=== PATIENT | female | born 1965 | race Caucasian/White ===

== ENCOUNTER 2016-04-17 13:24 | Emergency (ER) | payer MEDICARE, OTHER ==
[2016-04-17 14:31] LABS: URINE BACTERIA TRACE (NONE SEEN); URINE BILIRUBIN NEGATIVE (NEGATIVE); URINE BLOOD TRACE (NEGATIVE); URINE GLUCOSE (UA) 50 mg/dL (NORMAL); URINE KETONE TRACE (NEGATIVE); URINE LEUKOCYTE ESTERASE TRACE (NEGATIVE); URINE NITRATE NEGATIVE (NEGATIVE); URINE PROTEIN TRACE (NEGATIVE); URINE RBC 0-5 /[HPF] (0-2); URINE SQUAMOUS EPITHELIAL CELL 0-10 /[HPF] (NONE SEEN); URINE WBC 0-5 /[HPF] (0-5); UROBILINOGEN NORMAL mg/dL (<1.0)
== END 2016-04-17 16:52 | disposition home or self-care (01) ==
LOC: ER 13:24
PROVIDERS: General Practice
DX: N23 Unspecified renal colic (principal); K76.0 Fatty (change of) liver, not elsewhere classified; N28.1 Cyst of kidney, acquired; R10.32 Left lower quadrant pain; R31.9 Hematuria, unspecified; R30.0 Dysuria; E66.01 Morbid (severe) obesity due to excess calories; F17.210 Nicotine dependence, cigarettes, uncomplicated; Z79.82 Long term (current) use of aspirin; Z79.899 Other long term (current) drug therapy
CPT/HCPCS: 74150; 81001; 99070; 99284; 99284-25

== ENCOUNTER 2016-07-12 10:03 | Emergency (ER) | payer MEDICARE, OTHER ==
[2016-07-12 10:39] LABS: BASO # 0.1 10_X3_uL (0.0-0.1); BASO % 0.7 % (0.1-1.2); EOS # 0.2 10_X3_uL (0.0-0.4); GRAN # 5.7 10_X3_uL (1.6-6.1); GRAN % 59.2 % (34.0-71.1); HEMATOCRIT 41.7 % (34-45); HEMOGLOBIN 14.4 g/dL (11.2-15.7); LYMPH # 2.5 10_X3_uL (1.2-3.7); LYMPH % 26.3 % (19.3-51.7); MEAN CORPUSCULAR HEMOGLOBIN 31.6 pg (27.0-33.0); MEAN CORPUSCULAR HGB CONC 34.5 g/dL (32.0-36.0); MEAN CORPUSCULAR VOLUME 91.4 fL (79-95); MEAN PLATELET VOLUME 10.3 fl (7.5-11.5); MONO # 1.1 10_X3_uL (0.2-0.9); MONO % 11.8 % (4.7-12.5); PLATELET COUNT 181 x10_3/uL (182-369); RED BLOOD COUNT 4.56 x10_6/uL (3.9-5.2); RED CELL DISTRIBUTION WIDTH 12.6 % (11.7-14.4); WHITE BLOOD COUNT 9.6 x10_3/uL (4.0-10.0)
== END 2016-07-12 11:30 | disposition home or self-care (01) ==
LOC: ER 10:03
PROVIDERS: Family Medicine
DX: J40 Bronchitis, not specified as acute or chronic (principal); J02.9 Acute pharyngitis, unspecified; E11.9 Type 2 diabetes mellitus without complications; I10 Essential (primary) hypertension; Z79.82 Long term (current) use of aspirin; Z79.899 Other long term (current) drug therapy
CPT/HCPCS: 36415; 71020; 85025; 99283; 99283-25